=== PATIENT | male | born 1940 | race Caucasian/White ===

== ENCOUNTER 2019-08-26 17:03 | Emergency (ER) | payer OTHER ==
[~2019-08-26] VITALS: Ht 185.4 cm; Wt 114.3 kg
[~2019-08-26 17:03] MED LIST: ASPIR 8181 MG PO; JANUVIA100 MG PO; LASIX40 MG PO; OMEPRAZOLE20 MG PO; ZESTRIL10 MG PO; ZETIA10 MG PO
[2019-08-26] MEDS ORDERED: ATORVASTATIN CA80 MG PO (17:30)
[2019-08-26] MEDS ORDERED: NORCO 5-325 TA1 EACH PO (19:12)
== END 2019-08-26 19:42 | disposition home or self-care (01) ==
LOC: ED 17:03
DX: S86.911A Strain of unspecified muscle(s) and tendon(s) at lower leg level, right leg, initial encounter (principal); X50.9XXA Other and unspecified overexertion or strenuous movements or postures, initial encounter; Z87.891 Personal history of nicotine dependence; Z79.899 Other long term (current) drug therapy; Z79.82 Long term (current) use of aspirin
CPT/HCPCS: 73560; 76882; 99284-25

== ENCOUNTER 2025-05-27 07:13 | Emergency (ER) | payer MEDICARE, OTHER ==
[~2025-05-27] VITALS: Ht 185.4 cm; Wt 110.8 kg
[~2025-05-27 07:13] MED LIST changes: +ALLOPURINOL100 MG PO; +ATORVASTATIN CA80 MG PO; +BUPROPION XL300 MG PO; +CEFDINIR300 MG PO; +CLOPIDOGREL75 MG PO; +EZETIMIBE10 MG PO; +HYDROCODON-ACE1 EA10 PO; +METOPROLOL SUCC25 MG PO; +NORCO 5-325 TA1 EACH PO
[2025-05-27] MEDS ORDERED: Ropivacaine HCl 20 MG/10 ML AMP INJ ONE (08:00)
[2025-05-27] MEDS ORDERED: TRIAMCINOLONE ACET 40 MG/ML VIAL 1 ML IAARTIC ONE (08:00)
[2025-05-27 08:09] LABS: BASOPHILS 0.3 % (0.2-1.2); EOSINOPHILS 3.2 % (0.8-7.0); LYMPHOCYTES 34.6 % (21.8-53.1); MCH 30.2 PG (25.7-32.2); MCHC 32.7 g/dL (32.3-36.5); MCV 92.3 fL (79.0-92.2); MONOCYTES 7.8 % (5.3-12.2); NEUTROPHILS 53.7 % (34.0-67.9); RBC 4.14 M/uL (4.63-6.08)
[2025-05-27 08:27] LABS: ALT (SGPT) 31.0 U/L (14-59); AST (SGOT) 14.0 U/L (15-37); GLOMERULAR FILTRATION RATE,EST 44.0 mL/min (>60); PROTEIN, TOTAL 6.7 g/dL (6.4-8.2); UREA NITROGEN 38.0 mg/dL (7-18)
[2025-05-27 09:02] VITALS: BP 113/85
== END 2025-05-27 09:03 | disposition home or self-care (01) ==
LOC: ED 07:13
PROVIDERS: Emergency Medicine
DX: M25.561 Pain in right knee (principal); Z90.89 Acquired absence of other organs; Z79.899 Other long term (current) drug therapy
CPT/HCPCS: 36415; 73560; 80053; 84550; 85025; 99283; J2795; J3301